=== PATIENT | male | born 1970 | race Caucasian/White ===

== ENCOUNTER 2019-12-24 20:51 | Inpatient (IN) | payer MEDICARE, BC ==
[~2019-12-24] VITALS: Ht 185.4 cm; Wt 100.4 kg
[2019-12-24 21:30] LABS: ALANINE AMINOTRANSFERASE 109 U/L (4-49); ALKALINE PHOSPHATASE 76 U/L (50-136); ANION GAP 21 mmol/L (7-16); AST,SGOT 191 U/L (15-37); BILIRUBIN,TOTAL 1.2 mg/dL (0.0-1.0); BLOOD UREA NITROGEN 79 mg/dL (9-20); CALCIUM 10.2 mg/dL (8.4-10.2); CARBON DIOXIDE 15 mmol/L (22-30); CHLORIDE 107 mmol/L (98-107); CREATININE, serum 3.17 (0.66-1.25); GLUCOSE 87 mg/dL (74-106); HEMATOCRIT 43.5 % (42.0-52.0); HEMOGLOBIN 15.3 g/dl (13.5-18.0); MEAN CELL VOLUME 90 fl (80.0-100.0); MEAN CORPUSCULAR HEMOGLOBIN 32 pg (27.0-31.0); MEAN CORPUSCULAR HGB CONC 35 g/dl (33.0-37.0); MEAN PLATELET VOLUME 11.2 fl (7.4-10.4); PLATELET COUNT 251 K/mm3 (130-400); POTASSIUM 3.9 mmol/L (3.4-5.0); RED BLOOD COUNT 4.85 M/mm3 (4.20-5.60); REDCELL DISTRIBUTION WIDTH-CV 11.9 % (11.5-14.5); SODIUM 143 mmol/L (137-145); TOTAL PROTEIN 8.5 gm/dL (6.4-8.2)
[2019-12-24 21:33] LABS: ACETAMINOPHEN < 10 ug/mL (10-30)
[2019-12-24 22:13] LABS: BAND 4 % (0-10); LYMPHOCYTE 7 % (20.0-51.0); NEUTROPHILS 81 % (42.0-75.2); PLATELET ESTIMATE NORMAL (NORMAL)
[2019-12-25] VITALS (694 sets, daily range): BP systolic 111–126; BP diastolic 71–86; PULSE 88–107; TEMP 98–98.9; O2SAT 88–100
[2019-12-25 00:13] LABS: GLUCOSE,CSF 62 mg/dL (40-70); TOTAL PROTEIN,CSF 43 mg/dL (15-45)
[2019-12-25 01:00] LABS: CSF APPEARANCE CLEAR; CSF COLOR COLORLESS
[2019-12-25 01:01] LABS: CSF APPEARANCE CLEAR; CSF COLOR COLORLESS; CSF RBC 0 /mm3 (0-0); CSF RBC 2 /mm3 (0-0)
[2019-12-25 01:34] LABS: CSF MONONUCLEAR 0 % (70-100); CSF POLYMORPHONUCLEAR 0 % (0-6)
[2019-12-25 01:38] LABS: COLLECTION METHOD CLEAN CATCH
[2019-12-25 01:46] LABS: CSF MONONUCLEAR 0 % (70-100); CSF POLYMORPHONUCLEAR 0 % (0-6)
[2019-12-25 01:52] LABS: TRICYCLIC ANTIDEPRESS URINE NEGATIVE
[2019-12-25 01:55] LABS: MUCOUS Present /lpf; PH 5 (5-8); SQUAMOUS EPITHELIAL 0-2 /hpf; URINE APPEARANCE Hazy; URINE BACTERIA Rare /hpf; URINE BILIRUBIN Negative (NEGATIVE); URINE BLOOD 3+ (NEGATIVE); URINE COLOR Yellow; URINE GLUCOSE Negative (NEGATIVE); URINE KETONE Trace (NEGATIVE); URINE LEUKOCYTE ESTERASE Negative (NEGATIVE); URINE NITRATE Negative (NEGATIVE); URINE PROTEIN(semi-quant) Negative (NEGATIVE); URINE UROBILINOGEN Negative (NEGATIVE)
--- NOTE | 2019-12-25 03:30 | NUR ---
PT ADMITTED TO IMCU 15 FROM ED WITH ELEVATED HR, OTHER VSS. PT A/O x 2 BUT WITH INCOMPLETE THOUGHTS AND RAMBLE THAT HE HAS A BOUNTY ON HIS HEAD. PT STATING HE HAD BEED IN A [place]AD[place] FOR THE PAST 3 DAYS. WILL CONTINUE TO ASSESS PT STATUS AND UPDATE PROVIDERS NEEDED. PT CURRENLY RECIEVING AX PROPHYLACTICALLY, GOTTLIEB IN PLACED (PLACED IN ED), AND ON MAINTAINCE FLUID.
[2019-12-25] MEDS ORDERED: XANAX 1MG1 MG PO (05:13)
[2019-12-25] MEDS ORDERED: SEROQUEL 2525 MG/TAB PO (05:21)
[2019-12-25] MEDS ORDERED: VENTOLIN0.09 MG IH (05:24)
[2019-12-25] MEDS ORDERED: FLONASE NASAL S16 GM NS (05:27)
[2019-12-25] MEDS ORDERED: RT ADVAIR 528 DISKUS IH (05:29)
[2019-12-25] MEDS ORDERED: LOFIBRA160 MG PO (05:31)
[2019-12-25] MEDS ORDERED: FLEXERIL 1010 MG/TAB PO (05:33)
[2019-12-25] MEDS ORDERED: VOLTAREN 50MG T50 MG PO (05:36)
[2019-12-25] MEDS ORDERED: IMITREX100 MG PO (05:37)
[2019-12-25] MEDS ORDERED: NEURONTIN800 MG/TAB PO (05:39)
[2019-12-25] MEDS ORDERED: LEVAQUIN 5500 MG/TA1 PO (05:40)
[2019-12-25] MEDS ORDERED: PRIL40 PO (05:47)
[2019-12-25] MEDS ORDERED: FLOMAX 0.40.4 MG/CAP PO (05:48)
[2019-12-25] MEDS ORDERED: MOBIC15 MG PO (05:50)
--- NOTE | 2019-12-25 07:10 | NUR ---
Patient report recieved from JENNIFER Pena. Patient participates in report but with rambling speech and thought pattern. MIVF running at ordered rate to uncomplicated RH peripheral IV. Braden catheter with positive UO noted. Bed in low and locked position, call light within reach, rails up x3, bed alarm armed. Care assumed.
--- NOTE | 2019-12-25 07:31 | NUR ---
Vancomycin Initial Dosing Pharmacy Note Ordering provider: Brenna Aranda MD Indication/duration: Sepsis, unknown origin Relevant comorbidities: KAYLEE, starvation ketoacidosis, AMS, angie LABS: eCrCl~30, WBC 14.2 Recommendation: Loading dose: 1.25 grams given 12/25/19 @ 0400 Maintenance dose: 1 gram every 24 hours starting 12/25/19 @ 1400 Trough goal: 15-20 ug/mL with first level to be obtained 12/28/19 @ 13:30. Will continue to follow.
--- NOTE | 2019-12-25 09:10 | NUR ---
Dr. Mcadams rounds at this time. Orders as entered CPOE.
[2019-12-25 09:31] LABS: BASO % 0.1 % (0.0-2.0); GRAN # 7.1 (1.4-6.5); GRAN % 71.9 % (42.2-75.2); LYMPH # 1.5 (1.2-3.4); LYMPH % 14.9 % (20.0-51.0); MEAN CELL VOLUME 91 fl (80.0-100.0); MEAN CORPUSCULAR HGB CONC 35 g/dl (33.0-37.0); MEAN PLATELET VOLUME 11.2 fl (7.4-10.4); MONO # 1.3 (0.1-0.6); MONO % 12.8 % (1.7-9.3); PLATELET COUNT 190 K/mm3 (130-400); RED BLOOD COUNT 3.92 M/mm3 (4.20-5.60); REDCELL DISTRIBUTION WIDTH-CV 12.4 % (11.5-14.5)
[2019-12-25 09:35] LABS: HEMATOCRIT 35.8 % (42.0-52.0); HEMOGLOBIN 12.5 g/dl (13.5-18.0); MEAN CORPUSCULAR HEMOGLOBIN 32 pg (27.0-31.0)
[2019-12-25 09:54] LABS: ALBUMIN 3.6 gm/dL (3.5-5.0); BILIRUBIN,TOTAL 0.8 mg/dL (0.0-1.0); CALCIUM 8.3 mg/dL (8.4-10.2); CREATININE, serum 1.42 (0.66-1.25); MAGNESIUM 2.5 mg/dL (1.6-2.3); POTASSIUM 4.8 mmol/L (3.4-5.0); TOTAL PROTEIN 6.3 gm/dL (6.4-8.2)
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
--- NOTE | 2019-12-25 20:00 | NUR ---
Pt in bed, is alert and oriented x4. Has IVF infusing to right hand without redness or swelling. Has SL to left AC, flushed without difficulty. Catheter care provided. Braden to BSD with yellow urine. Has numerous scratches to lower legs and feet are dirty and cracked, he reports walking without shoes. Denies pain. Bed alarm on.
--- NOTE | 2019-12-25 22:00 | NUR ---
Assisted to toilet, gait unsteady, slow. Attempted to have BM without success. Asking for "dairy product" to help him have a stool. Back to bed, pudding given.
[2019-12-26] VITALS (359 sets, daily range): BP systolic 115–127; BP diastolic 76–87; PULSE 76–92; TEMP 97.5–98.5; O2SAT 94–100
--- NOTE | 2019-12-26 00:15 | NUR ---
Pt resting, awakens easily when staff in room. SQ Heparin given. Offers no concerns at this time.
--- NOTE | 2019-12-26 00:41 | NUR ---
Placed on oxygen at 2L/NC for decrease in SaO2 while sleeping.
--- NOTE | 2019-12-26 02:40 | NUR ---
Resting well with oxygen on.
--- NOTE | 2019-12-26 03:39 | NUR ---
Pt rings for assist, speech is clear but rambled. States "that thing for your face, I need, like on TV". Pt sleepy, provided another blanket and encouraged to rest.
[2019-12-26 05:36] LABS: BASO % 0.4 % (0.0-2.0); EOS % 0.8 % (0-4.0); GRAN # 2.8 (1.4-6.5); GRAN % 56.1 % (42.2-75.2); LYMPH # 1.6 (1.2-3.4); LYMPH % 31.5 % (20.0-51.0); MEAN CELL VOLUME 93 fl (80.0-100.0); MEAN CORPUSCULAR HGB CONC 35 g/dl (33.0-37.0); MEAN PLATELET VOLUME 10.9 fl (7.4-10.4); MONO # 0.5 (0.1-0.6); MONO % 10.8 % (1.7-9.3); PLATELET COUNT 135 K/mm3 (130-400); RED BLOOD COUNT 3.09 M/mm3 (4.20-5.60); REDCELL DISTRIBUTION WIDTH-CV 12.5 % (11.5-14.5)
[2019-12-26 05:41] LABS: HEMATOCRIT 28.7 % (42.0-52.0); MEAN CORPUSCULAR HEMOGLOBIN 32 pg (27.0-31.0)
[2019-12-26 05:52] LABS: ALBUMIN 2.7 gm/dL (3.5-5.0); BILIRUBIN,TOTAL 0.5 mg/dL (0.0-1.0); CREATININE, serum 0.76 (0.66-1.25); POTASSIUM 3.5 mmol/L (3.4-5.0); TOTAL PROTEIN 5.2 gm/dL (6.4-8.2)
--- NOTE | 2019-12-26 06:21 | NUR ---
Resting well, no concerns offered at this time.
--- NOTE | 2019-12-26 07:55 | NUR ---
Shift assessment complete at this time. Plan of care reviewed at bedside with patient. Additional time taken to address any other needs or concerns. Vitals stable at this time. Pt reports back pain at 8/10 severity and was subsequently repositioned and given ice pack to back per request. Pt reports pain already began improving after these interventions. Bed in low position, call light within reach, will continue to monitor.
--- NOTE | 2019-12-26 11:30 | NUR ---
Pt currently refusing all interventions of treatment plan/plan of care at this time. Pt refusing vital sign monitoring and all nursing interventions. Pt removed peripheral IV and is refusing reinsertion of IV for maintenance fluid administration. Dr. Mcadams notified of patient's refusal of all treatment. Will continue to monitor.
--- NOTE | 2019-12-26 12:00 | NUR ---
Pt refusing all treatments, assessments, and nursing interventions at this time. Requests to leave AMA, however, Pt has no money, clothes, wallet, ride, or vehicle. Additionally, Pt is not from [facility] and has no friends or family who could pick him up. Pt's reports also that his dog is currently being held in the [place] [facility] (which is closed today). Pt has agreed to remain one more night in the hospital so transportation services can be arranged and his dog can be located.
--- NOTE | 2019-12-26 14:36 | NUR ---
Report from Karan in ICU. Patient standing at the sink now & shaving. He is insistant on showering. Hygiene supplies provided. Patient apperence is not hygenic. fall precautions followed.
--- NOTE | 2019-12-26 15:28 | NUR ---
Serafin was contacted by patients nurse inquiring about services for patient. SERAFIN informed that patient's care was impounded, he does not know where, and his dog was currently at the animal group home. SERAFIN then received a call from patients mother Barb randolph [phone], who described same situation and discussed by previous SW. Barb indicated that she would not be able to come to [place] to get patient as she is over 80 years old and is unable to drive very far. SERAFIN attempted to speak with patient to determine stability, however patient presented as very irritable. when asked about it, he said he was tired and wanted to rest. SERAFIN contacted [employer] and coordinated to start locating resources for patient. SERAFIN contacted the [facility] about housing patient temporarily, and was informed that because he is not a resident of [place] and is "transient" he could stay for 48 hours, and then he would have to leave. Patient savage have to go to the group home to check in, and complete a triage sheet. They would also make sure he was not on a registry list. SERAFIN located some clothing for patient and updated patients nurse. Nurse informed SERAFIN that patient was moved to medical for further services and will be discharged tomorrow. DCF report will be submitted for further evaluation.
--- NOTE | 2019-12-26 17:17 | NUR ---
Patient feeling better after showering, he had a snack & took medications without issues. doing well. Vss on room air.
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
[2019-12-27 01:17] VITALS: BP 124/81; PULSE 83; TEMP 98.2
--- NOTE | 2019-12-27 04:54 | NUR ---
Patient has been sleeping all night. When he was awake at the beginning of shift, he was calm and pleasant. He has requested phone numbers for animal shelters in the area that may have his dog. A list was provided and he will call in the morning. He has not complained of pain. Braden catheter is draining well. Will continue to monitor.
[2019-12-27 04:59] VITALS: BP 117/78; PULSE 85; TEMP 98.7
--- NOTE | 2019-12-27 08:00 | NUR ---
Patient is awake and alert in room, did finish breakfast, ate 100%. Administered medications, he did ask for PRN ativan and flexeril. States he is having some general pain but does not wish for anything other than the flexeril. He is observed resting on the couch. Call light is within reach.
[2019-12-27 08:10] VITALS: BP 127/97; PULSE 79; TEMP 98.5
[2019-12-27 11:34] LABS: BASO % 0.4 % (0.0-2.0); EOS # 0.1 (0.0-0.7); EOS % 1.3 % (0-4.0); GRAN # 3.7 (1.4-6.5); GRAN % 68.3 % (42.2-75.2); LYMPH # 1.1 (1.2-3.4); MEAN CELL VOLUME 95 fl (80.0-100.0); MEAN CORPUSCULAR HEMOGLOBIN 33 pg (27.0-31.0); MEAN CORPUSCULAR HGB CONC 34 g/dl (33.0-37.0); MEAN PLATELET VOLUME 10.8 fl (7.4-10.4); MONO # 0.5 (0.1-0.6); MONO % 9.6 % (1.7-9.3); PLATELET COUNT 151 K/mm3 (130-400); RED BLOOD COUNT 3.38 M/mm3 (4.20-5.60); REDCELL DISTRIBUTION WIDTH-CV 12.6 % (11.5-14.5)
[2019-12-27 11:41] VITALS: BP 130/89; PULSE 71; TEMP 98.1
[2019-12-27 11:47] LABS: ALBUMIN 3.2 gm/dL (3.5-5.0); BILIRUBIN,TOTAL 0.5 mg/dL (0.0-1.0); CALCIUM 9.2 mg/dL (8.4-10.2); CREATININE, serum 0.67 (0.66-1.25); MAGNESIUM 1.6 mg/dL (1.6-2.3); POTASSIUM 3.9 mmol/L (3.4-5.0); TOTAL PROTEIN 6.1 gm/dL (6.4-8.2)
--- NOTE | 2019-12-27 16:21 | NUR ---
A psyciatric consult was ordered for the patient. An inpatient psychiatric stay was recommended. The patient is in agreeance. AGAPITO contacted the patient's mother, Barb and she is in agreeance. AGAPITO faxed referrals to [place] in [facility] in [place] and to [facility]. Awaiting responses. Barb reports that the patient does have a son named Santiago who is 27. Barb states that Santiago will not take the patient's or her calls and has not in years. Barb states she has had keys ordered for the patient and they will be delivered to [employer]. Barb may have someone corn picker her son after his inpatient psyciatric hospitaization to take him home. The patient does not have a valid drivers license. Will continue to monitor.
[2019-12-27 17:29] VITALS: BP 129/81; PULSE 79; TEMP 98.1
--- NOTE | 2019-12-27 18:23 | NUR ---
Patient is up in room sitting on couch. Has had permission to be independent with ambulation if using walker. Denies pain currently. Call light and personal items are within reach.
[2019-12-27 20:00] VITALS: BP 128/86; PULSE 80; TEMP 98.5
--- NOTE | 2019-12-27 20:00 | NUR ---
At time of assessment, patient is sitting in chair watching TV. He is alert and oriented and calm but seems slightly more anxious/energetic than last night. He ambulates well in his room and in the hallway. Lungs are clear, heart sounds normal/regular. He has some swelling in his lower extremities, along with several abrasions from the outdoor experience that lead him here. He doesnt complain of any pain but does request Xanax for his anxiety. His goal is to get a good nights rest. Will continue to monitor.
[2019-12-28 04:00] VITALS: BP 122/80; PULSE 79; TEMP 98.3
--- NOTE | 2019-12-28 05:29 | NUR ---
Patient has slept throughout the night. He has not complained of any pain. He does not voice any concerns. Will continue to monitor.
[2019-12-28 06:24] LABS: BASO % 0.9 % (0.0-2.0); EOS # 0.3 (0.0-0.7); EOS % 5.8 % (0-4.0); GRAN % 46.2 % (42.2-75.2); HEMOGLOBIN 10.9 g/dl (13.5-18.0); LYMPH # 1.7 (1.2-3.4); LYMPH % 39.4 % (20.0-51.0); MEAN CELL VOLUME 94 fl (80.0-100.0); MEAN CORPUSCULAR HEMOGLOBIN 32 pg (27.0-31.0); MEAN CORPUSCULAR HGB CONC 34 g/dl (33.0-37.0); MEAN PLATELET VOLUME 11.1 fl (7.4-10.4); MONO # 0.3 (0.1-0.6); MONO % 7.5 % (1.7-9.3); PLATELET COUNT 161 K/mm3 (130-400); RED BLOOD COUNT 3.45 M/mm3 (4.20-5.60); REDCELL DISTRIBUTION WIDTH-CV 12.5 % (11.5-14.5)
[2019-12-28 06:30] LABS: HEMATOCRIT 32.4 % (42.0-52.0)
[2019-12-28 06:35] LABS: ALBUMIN 2.9 gm/dL (3.5-5.0); BILIRUBIN,TOTAL 0.3 mg/dL (0.0-1.0); CALCIUM 9.1 mg/dL (8.4-10.2); CREATININE, serum 0.62 (0.66-1.25); POTASSIUM 3.6 mmol/L (3.4-5.0); TOTAL PROTEIN 5.6 gm/dL (6.4-8.2)
[2019-12-28 08:47] VITALS: BP 126/84; PULSE 85; TEMP 98.1
--- NOTE | 2019-12-28 10:19 | NUR ---
Tess from [facility] reports that they cannot accept the patient due to his age, most of the client there are in their 80s and 90s. Maria A from [facility] reports they are full. Will continue to monitor.
--- NOTE | 2019-12-28 10:55 | NUR ---
AGAPITO faxed referrals to [facility] and to [facility]. Will continue to follow.
--- NOTE | 2019-12-28 11:24 | NUR ---
Patient has been resting off and on this morning. Mood seems flat today. He has been ambulating in hallway with walker. Answers questions appropriately. States he has minimal pain, did request PRN xanax and flexeril, this was administered per his request. Call light and personal items are within reach.
--- NOTE | 2019-12-28 11:47 | NUR ---
First visit from the paper and pulp mill operator. prayed with patient. No other needs right now.
--- NOTE | 2019-12-28 11:51 | NUR ---
The patient is needing a walker. SW faxed order to [facility]. Will continue to monitor.
[2019-12-28 11:59] VITALS: BP 131/82; PULSE 84; TEMP 97.4
--- NOTE | 2019-12-28 13:24 | NUR ---
AGAPITO faxed a referral to [facility]. Awaiting response.
--- NOTE | 2019-12-28 13:43 | NUR ---
Dr. Naylor from [facility] reports they cannot take the patient. Will continue to monitor.
--- NOTE | 2019-12-28 13:52 | NUR ---
Nila from [facility] reports they did receive the referral. Once the review it they will contact
--- NOTE | 2019-12-28 14:35 | NUR ---
AGAPITO faxed referral to [facility]. Awaiting response.
--- NOTE | 2019-12-28 15:34 | NUR ---
There was some concern for lopez from the facilites. AGAPITO informed the team. The patient is to have the lopez removed to have a voiding trial. Shavonne from [facility] () denied the patient due to the patient's lopez and not knowing if the patient can void. AGAPITO informed Shavonne about the voiding trial. Still denied at this time. Vani from [facility] reports they want to know how the the patient does after the lopez is removed. Will continue to follow.
[2019-12-28 17:11] VITALS: BP 130/90; PULSE 79; TEMP 98.1
--- NOTE | 2019-12-28 20:21 | NUR ---
REPORT GIVEN TO ONCOMING SHIFT
[2019-12-28 22:03] VITALS: BP 137/87; PULSE 93; TEMP 98.3
[2019-12-29 01:01] VITALS: BP 108/68; PULSE 79; TEMP 97.8
[2019-12-29 03:56] VITALS: BP 120/88; PULSE 83; TEMP 98
--- NOTE | 2019-12-29 05:34 | NUR ---
PATIENT HAS BEEN ABLE TO SLEEP OFF AND ON DURING THE NIGHT. PATIENT HAS WALKED THE HALLS A FEW TIMES DURING MY SHIFT. PATIENT IS WANTING TO ADD SOME FLAVOR TO WATER. HE HAS BEEN ALERT AND ORIENTATED DURING MY SHIFT. AFFECT WAS FLAT BUT PATIENT WAS VERY TALKATIVE AND UNDERSTADING OF ANYTHING THAT WAS TOLD TO HIM. PAPERWORK HAS BEEN FILLED OUT AND PRINTED OFF BECAUSE THERE HAS BEEN ACCEPTANCE TO [facility] BY DR. PALACIOS. [phone] IS THE NURSE TO NURSE NUMBER AT THE FACILITY. WILL REPORT OFF TO DAY SHIFT UPON THEIR ARRIVAL
--- NOTE | 2019-12-29 08:26 | NUR ---
[facility] admissions department contacted SW. They cannot accept the patient due to his medical acuity. Will continue to follow.
[2019-12-29] MEDS ORDERED: SEROQUEL 1100 MG/TAB PO (08:44)
--- NOTE | 2019-12-29 08:50 | NUR ---
Patient sitting up in chair. Questioning transfer, but did sign his paperwork after explaining it to patient & reassurring. rounded. Discharge orders obtained. Patient feeling a little better after speaking with [facility] about his dog Appllo. He was very tearful, klenex provided, tried to comfort patient. He is provided with clothing & dressed. He did well with breakfast & provdied with snacks for the road.
--- NOTE | 2019-12-29 09:02 | NUR ---
[facility] contacted [employer] 12/27 in the evening to advise that the patient is accepted and can take him on 12/28. The patient is to discharge today, 12/28 to [facility] room 131. AGAPITO presented the IM form to the patient. The patient understood and signed the form. A copy was provided to the patient and original was placed in the chart. AGAPITO contacted the patient's mother Barb to inform her. All questions and concerns were addressed. SW to fax discharge orders. There are no additional needs at this time.
--- NOTE | 2019-12-29 09:15 | NUR ---
ATTEMPTED TO CALL REPORT TO [facility]. THEY ARE TO CALL BACK
--- NOTE | 2019-12-29 10:15 | NUR ---
Patient wheeled out with all belongings. Patient spoke on the phine with his mother & bank & ready to discharge. [facility] transport to take him
--- NOTE | 2019-12-29 14:34 | NUR ---
AGAPITO received patient notes from [facility] in [place], [place]. AGAPITO faxed the notes to Nila at [facility]. There are no additional needs.
== END 2019-12-29 10:16 | DRG 923 ==
LOC: COL.ER 20:51 → EDBD 20:52 → SURG 23:53 → IMCU 23:53 → SURG 12-26 14:25
PROVIDERS: Emergency Medicine; Internal Medicine; Nurse Practitioner; Physician Assistant; ADMIT Student in an Organized Health Care Education/Training Program
DX: T73.0XXA Starvation, initial encounter (principal); N17.9 Acute kidney failure, unspecified; M62.82 Rhabdomyolysis; E87.2 Acidosis; R65.10 Systemic inflammatory response syndrome (SIRS) of non-infectious origin without acute organ dysfunction; F20.0 Paranoid schizophrenia; G93.40 Encephalopathy, unspecified; L03.116 Cellulitis of left lower limb; J45.909 Unspecified asthma, uncomplicated; R79.89 Other specified abnormal findings of blood chemistry; F19.10 Other psychoactive substance abuse, uncomplicated; M54.9 Dorsalgia, unspecified; M25.552 Pain in left hip; K21.9 Gastro-esophageal reflux disease without esophagitis; R33.9 Retention of urine, unspecified; Z59.0 Homelessness
CPT/HCPCS: 99222-AI; 99231-AI; 99232-AI; 99233-AI; 99239; J0696; J1644; J1650; J3370; J7030; J7042; J7050